=== PATIENT | female | born 2000 | race Hispanic/Latino ===

== ENCOUNTER 2021-02-26 14:32 | Emergency (ER) | payer BC, OTHER ==
--- OUTSIDE RECORDS SUMMARY | 2021-02-26 14:34 | XMS REPORT | Continuity of Care Document ---
:2000 Author Organization [facility] t Address [address] [place] [address] Care Team Providers Name Role Phone Mikhail Benton III Attending Clinician Mikhail Benton III Admitting Clinician Problems Condition Condition Condition Status Onset Resolution Last Treating Co mments Source Name Details Category Date Date Treatment Clinician Date PEDI/ Diagnosis Active 2018-01-23 Mem oria R/LHC 12-21 09:45:00 l DEVICE PEDI/ 00:00: [place] CLOSURE OF R/C 00 ASD DEVICE CLOSURE OF ASD Active 12/21/2017 [facility] jail Problem 2018-08-11 Me moria (current) 12:48:02 l use of Long Anurag aspirin term (current) use of aspirin 08/11/2018 [facility] Patent Problem 2018-08-11 Memor ia ductus 12:48:02 l arteriosus Patent Herm moody ductus arteriosus 08/11/2018 [facility] Nonrheumat Problem 2018-08-11 M emoria ic 12:48:02 l pulmonary Anurag valve Nonrheumat stenosis ic pulmonary valve stenosis 08/11/2018 [facility] Anxiety Problem 2018-08-11 Iván bulmaro disorder, 12:48:02 l unspecifie Anxiety Her cheng d disorder, unspecifie d 08/11/2018 [facility] Gastro-eso Problem 2018-08-11 M emoria phageal 12:48:02 l reflux [place] disease Gastro-eso without phageal esophagiti reflux s disease without esophagiti s 08/11/2018 [facility] History of Past Illness Condition Condition Condition Status Onset Resolution Last Treating Co mments Source Name Details Category Date Date Treatment Clinician Date Atrial Problem 2018-08-11 2018-08-11 M emobulmaro septal 8-03 12:48:02 12:48:02 l defect Atrial 03:04: Anurag septal 51 defect 02/01/2018 08/11/2018 [facility] Allergies, Adverse Reactions, Alerts Allergy Allergy Status Severity Reaction(s) Onset Inactive Treating Comm ents Source Name Type Date Date Clinician Phenerga Phenerga Active Memori a n<sup>1< n<sup>1< l /sup> /sup> [place] Social History Smoking Status Start Date Stop Date Source Social History [facility] Medications Ordered Filled Start Stop Current Ordering Indication Dosage Frequency Signature Comments Components Source Medication Medication Date Date Medication? Clinician (SIG) Name Name Acetaminoph Yes 650 mg = 2 Memoria en 325 MG 7-24 tab, PO, l Oral Tablet 14:04: ONCE, PRN H erm Pain Score 1-3, 0 Refill(s) Aspirin 81 Yes 81 mg = 1 Me moria MG Chewable 7-24 tab, PO, l Tablet 14:04: Daily, # [place] 00 30 tab, 4 Refill(s) Aspirin No Notes: Memoria 7-24 Take with l 14:00: food. Cefazolin No Notes: Memori a 7-24 Pediatric l 02:00: Dilution [place] 00 - Gdmk=225qa /ml (Same As: Ancef) dexmedetomi No Route: IV, [facility] dine (ANES) 01-21 Drug form: l 19:30: INJ, ONCE, Stop date: 01/21/18 14:30:00 CDT neostigmine No Route: IV, Memoria (ANES) 01-21 Drug form: l 19:30: INJ, ONCE, Stop date: 01/21/18 14:30:00 CDT glycopyrrol No Route: IV, Memoria ate (ANES) 01-21 Drug form: l 19:30: INJ, ONCE, Stop date: 01/21/18 14:30:00 CDT ondansetron No Route: IV, Memoria (ANES) 01-21 Drug form: l 19:26: INJ, ONCE, Stop date: 01/21/18 14:26:00 CDT ceFAZolin No Route: IV, Me moria (ANES) 01-21 Drug form: l 18:31: INJ, ONCE, [place] Stop date: 01/21/18 13:31:00 CDT propofol No Route: IV, Mem oria (ANES) 01-21 Drug form: l 17:11: INJ, ONCE, Anurag Stop date: 01/21/18 12:11:00 CDT dexamethaso No Route: IV, Memoria ne (ANES) 01-21 Drug form: l 17:11: INJ, ONCE, [place] 00 Stop date: 01/21/18 12:11:00 CDT rocuronium No Route: IV, M emoria (ANES) 01-21 Drug form: l 17:11: INJ, ONCE, [place] 00 Stop date: 01/21/18 12:11:00 CDT Acetaminoph No Notes: Do M emoria en 01-21 not exceed l 16:41: 4 gm/day. Anurag (Same as: Tylenol) Ibuprofen No Notes: Memori a 01-21 (Same as: l 16:41: Motrin [place] 00 [facility] , Advil [facility] ) Take with food. Isolyte S No Route: IV, Me moria PH 7.4 01-21 Total l (ANES) 1000 16:33: Volume: Her cheng mL 00 1,000, Start date: 01/21/18 11:33:00 CDT, Stop date: 01/21/18 12:33:00 CDT Vital Signs Vital Name Observation Time Observation Value Comments Source Respitory Rate 2018-01-22 13:30:00 Memori al [place] Systolic (mm Hg) 2018-01-22 13:30:00 Iván rial [place] Diastolic (mm Hg) 2018-01-22 13:30:00 Mem orial Anurag Respitory Rate 2018-01-22 09:09:00 Memori al [place] Systolic (mm Hg) 2018-01-22 09:09:00 Iván rial Anurag Diastolic (mm Hg) 2018-01-22 09:09:00 Mem orial Anurag Systolic (mm Hg) 2018-01-22 04:41:00 Iván ivelisse [place] Diastolic (mm Hg) 2018-01-22 04:41:00 Mem orial Anurag Respitory Rate 2018-01-22 04:41:00 Memori al Anurag Temperature Oral (F) 2018-01-22 01:00:00 98.2 F [facility] [place] BMI Calculated 2018-01-21 15:52:00 Memori al Aunrag Height 2018-01-21 15:52:00 156 cm [facility] [place] Weight 2018-01-21 15:52:00 [facility] Anurag Heart Rate 2018-01-21 14:30:00 [facility] [place] Procedures Procedure Date / Time Performed Performing Clinician [facility] e Selective catheter 2018-01-21 23:32:00 [facility] [place] placement, venous system; first order branch (eg, renal vein, jugular vein) Encounters Start End Encounter Admission Attending Care Care Encounter Source Date/Time Date/Time Type Type Clinicians Facility Department ID 2018-01-21 2018-01-22 Bedded [facility] [id number] Memoria 18:57:00 17:31:00 Outpatient r [place] [address] [facility] 2018-01-21 2018-01-22 Outpatient [facility] [id number] 13:57:00 12:31:00 Benji Harvey 2018-01-21 2018-01-22 Outpatient [facility] [id number] 13:57:00 12:31:00 Benji Harvey Results Test Description Test Time Test Comments Results Result Comments Source HEMATOLOGY 2018-01-21 18:47:00 Test Item Value Reference Range Interpretation Comme nts POC Activated Clotting Time (test code = POC Activated Clotting Malcolm e) 238 s [facility] EnmejbkPQQQBCFIJQ1071-91-01 18:27:00 Test Item Value Reference Range Interpretation Comments POC Activated Clotting Time (test code 285 s = POC Act[facility] Time) [facility] 15:38:000.58[facility] 2018-01-21 15:38:04265Zxturlsk HckibolPNQJNXLKVYIO2931-57-45 15:38:0079[facility] KdywaiqBGWTXRLWMD7034-80-12 15:38:32358Oaaleyxk HahcvfkALGUNOSRLJ6642-24-59 15:38:008.6[facility] KwtfhkxWYTJWCKEIK4494-64-13 15:38:0013.7[facility] XYQXJWQOGT0637-25-09 15:38:0078.8[facility] IjonmadRFCRPNEDYX9440-37-59 15:38:00 33.5[facility] YrzhaicAHBLCJUZJD1933-31-71 15:38:0032.4[facility]annHEMATOLOGY 2018-01-21 15:38:00 Test Item Value Reference Range Interpretation Comments MCH (test code = MCH) 25.5 pg 27.0-31.0 [facility] OopcprsPSHGFIXPNZ2508-36-65 15:38:0010.9[facility]annHEMATOLOGY 2018-01-21 15:38:004.25[facility] YqxtofiIEAZQEDMSM5697-38-24 15:38:005.3[facility] VqyvcrgFLDHFLLGZD8112-87-09 15:38:000.1[facility] HecwybfRDLSVZFMQS7333-49-32 15:38:001+ *ABN*(01/21/18 10:38 AM)[facility] DocfmdhTSJYQREXJG9414-37-94 15:38:00 55.7[facility] FxaavjuIDKTWVXGHH0801-56-62 15:38:008.0[facility]annHEMATOLOGY 2018-01-21 15:38:0033.7[facility] TgggjfzBOKPINLQQN9321-48-39 15:38:000.4[facility] GuyszcbPMMTMYNZKX3976-91-58 15:38:001.8[facility] JevrqpfWVFVAIJGXH8774-07-08 15:38:001.9[facility] JyspnweLWLFBUHPHY7082-12-16 15:38:000.7[facility] Anurag OUNMNHILNQ0704-60-34 15:38:003.0[facility]annBLOOD BANK JANAIMU5310-94-90 15:38:00Negative (01/21/18 10:38 AM)[facility] QwvxyuiSIMJLMZEPXHC8198-73-55 15:38:0010.8[facility] YlwkzquWFSYWEXOODVL6890-33-55 15:38:08040Zltgvmly [place] OIVGEFUUAYCI0149-36-48 15:38:27142Slksflrd SupyosbKHEPGFTPRBDP8905-27-81 15:38:007.9[facility] InfrwfyVWKATROKMAAP0254-16-22 15:38:0024[facility] [place] QVLTHMEEFSTG2658-69-88 15:38:0011[facility] UkqxdjvUEMERFEMCZIM5185-46-08 15:38:00 3.8[facility]annBL[facility] BANK ZUMMWZK9533-68-83 15:26:00Product available (01/21/18 10:26 AM)[facility] Anurag
--- NOTE | 2021-02-26 15:51 | ER ---
Nurse's Notes [facility] Name: Elsie Shaikh Age: 21 yrs Sex: Female : 2000 Arrival Date: 02/26/2021 Time: 14:33 Bed Waiting Private MD: Diagnosis: Assessment: 02/26 15:00 Reassessment: pt not in lobby. iw ED Course: 14:33 Patient arrived in ED. ds1 Administered Medications: No medications were administered Outcome: 15:50 Patient left the ED. iw Signatures: Tina Jordan ds1 Esperanza Frederick, RN RN iw
== END 2021-02-26 15:50 | disposition left against medical advice (07) ==
LOC: ER 14:32
DX: Z02.9 Encounter for administrative examinations, unspecified (principal)